=== PATIENT | female | born 1960 | race Caucasian/White ===

== ENCOUNTER → 2020-05-05 18:30 | Outpatient (ROUT) | payer MEDICARE, SELFPAY ==
[2020-05-05 18:32] LABS: Bacteria Urine None Seen
[2020-05-05 18:43] LABS: Appearance Urine UA CLEAR; Bilirubin Urine UA NEGATIVE (NEGATIVE); Color Urine UA YELLOW; Glucose Urine UA NEGATIVE (Negative); Ketones Urine UA NEGATIVE (NEGATIVE); Leukocyte Esterase Urine UA NEGATIVE (NEGATIVE); Nitrite Urine UA NEGATIVE (Negative); Occult Blood Urine UA NEGATIVE (Negative); Protein Urine UA NEGATIVE (Negative); Urobilinogen Urine UA 0.2 E.U./dL (0.2)
[2020-05-05 18:52] LABS: Culture Indicated Urine Cult Not Indicated; RBC Urine 0-1/HPF (0-5/HPF); WBC Urine 0-1/HPF (0-5/HPF)
[2020-05-05 18:53] LABS: Alanine Aminotransferase 8 IU/L (<35); Albumin 4.3 g/dL (3.5-5.0); Albumin Globulin Ratio 1.3 (1.0-2.8); Alkaline Phosphatase 79 U/L (38-126); Aspartate Aminotransferase 19 IU/L (14-36); BUN Creatinine Ratio 27.3 (6-22); Bilirubin Total 0.3 mg/dL (0.2-1.3); Blood Urea Nitrogen 18 mg/dL (7-17); Carbon Dioxide 25 mmol/L (22-32); Chloride 107 mmol/L (98-107); Cholesterol 211 mg/dL (140-199); Estimated Glomerular Filt Rate > 60.0 mL/min (>60); Globulin 3.3 g/dL (1.7-4.1); Glucose 104 mg/dL (80-110); HDL Cholesterol 53 mg/dL (40-60); HEMOLYSIS < 15 (0-50); LDL Cholesterol Calculated 89 mg/dL (<100); Potassium 4.3 mmol/L (3.4-5.1); Sodium 142 mmol/L (137-145); Total Protein 7.6 g/dL (6.3-8.2); Triglycerides 345 mg/dL (35-150)
[2020-05-05 19:19] LABS: Hematocrit 37.7 % (36-46); Mean Corpuscular HGB Conc 31.9 % (30-36); Mean Corpuscular Hemoglobin 26.7 PG (26-34); Mean Corpuscular Volume 83.6 fL (80-100); Platelet Count 373 X10^3/uL (150-400); Red Blood Cell Count 4.51 X10^6/uL (4.0-5.2); Red Cell Distribution Width 15.2 % (11.6-14.8); White Blood Cell Count 8.5 X10^3/uL (4.5-11.0)
[2020-05-05 19:22] LABS: Neutrophils Absolute Manual 5100 /uL (3000-5900); TSH w/ Reflex to FT4 4.16 uIU/mL (0.47-4.68); Total Cells Counted 100
[2020-05-05 19:23] LABS: Anisocytosis 1+
== END ==
PROVIDERS: Visit Provider Internal Medicine
DX: E03.9 Hypothyroidism, unspecified (principal); I10 Essential (primary) hypertension; E78.5 Hyperlipidemia, unspecified; Z80.0 Family history of malignant neoplasm of digestive organs; E78.1 Pure hyperglyceridemia
CPT/HCPCS: 80053; 80061; 81001; 84443; 85025

== ENCOUNTER → 2020-06-27 13:57 | Outpatient (CLI) | payer MEDICARE, SELFPAY ==
[2020-06-27 15:27] LABS: COVID19 -Nasal RAPID Negative (Negative)
== END ==
PROVIDERS: Visit Provider Physician Assistant
DX: Z11.59 Encounter for screening for other viral diseases (principal)
CPT/HCPCS: 87635

== ENCOUNTER 2020-06-29 12:16 | Day surgery (SDC) | payer MEDICARE, SELFPAY ==
--- NOTE | 2020-06-29 | PATH_ITS ---
[facility] Accession Number: [id number] . 01 Material submitted: . gastrointestinal site - GASTRIC POLYP . 02 Diagnosis: Gastric Polyp, Biopsy: Fundic gland polyp. No evidence of Helicobacter organisms on H/E stain. Negative for intestinal metaplasia. Negative for dysplasia and malignancy. MRV 07/01/2020 1056 Local . 02 Electronically signed: . Kj Britt MD, PhD, Pathologist NPI- [id number] . 01 Gross description: . GASTRIC POLYP: Received in formalin are 2 fragment(s) of anne, soft tissue measuring 0.3 x 0.3 x 0.2 cm to 0.3 x 0.2 x 0.1 cm submitted entirely in 1 cassette(s) /QBJ 06/30/2020 0648 Local . 02 Pathologist provided ICD-10: K31.7 . 02 CPT . 853064 Performed at: 01 [facility] [address] [facility], [place], [place] [id number] MD Grant Sr MD Phone: [phone] Performed at: 02 [facility] [address] [place], [place] [id number] MD Tika Sommers MD Phone: [phone]
[2020-06-29 12:47] VITALS: BP 150/90; PULSE 82; RESP 16; TEMP 36.9; O2SAT 98; BMI 40.7
[2020-06-29] MEDS: SODIUM CHLORIDE 0.9% 1,000 ML 200 ML IV (12:55)
--- NOTE | 2020-06-29 13:22 | P.HP_ITS ---
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 Patient History Family & Social History Social History: household members none Tobacco & Substance use: Smoking Status Never smoker alcohol intake frequency holiday/special occasion Substance Use Type does not use Meds Home Medications and Allergies Home Medications Medication Instructions Recorded Confirmed Type amlodipine-benazepril 15 cap PO BID 06/29/20 06/29/20 History bupropion HCl 200 mg PO BID 06/29/20 06/29/20 History clonazepam 1 mg PO BID 06/29/20 06/29/20 History fenofibrate 48 mg PO DAILY 06/29/20 06/29/20 History gabapentin 100 mg PO TID 06/29/20 06/29/20 History levothyroxine 88 mcg PO DAILY 06/29/20 06/29/20 History metoprolol succinate 25 mg PO DAILY 06/29/20 06/29/20 History olanzapine 2.5 mg PO BID 06/29/20 06/29/20 History pantoprazole 40 mg PO DAILY 06/29/20 06/29/20 History rosuvastatin 40 mg PO DAILY 06/29/20 06/29/20 History Allergies Allergy/AdvReac Type Severity Reaction Status Date / Time No Known Drug Allergies Allergy Verified 06/29/20 12:42 Exam Vital Signs (past 8 hours): - 06/29/20 12:47 Temperature 98.5 F Pulse Rate 82 Respiratory Rate 16 Blood Pressure 150/90 H Pulse Oximetry 98 Oxygen Delivery Method Room Air Narrative Exam Narrative: Oropharynx free of lesions Chest clear to auscultation percussion Cardiac exam reveals no S3 or murmur Assessment & Plan Assessment & Plan narrative: 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 Need for colorectal cancer screening and screening of the papilla with upper endoscopy. Risks, benefits, alternatives have been explained.
--- NOTE | 2020-06-29 13:24 | PM.OP.ENDO ---
Operative Date/Time/Diagnoses Date of procedure: 06/29/20 Pre-op diagnosis: See indications and findings Procedure & Clinicians Study performed: EGD and colonoscopy Same procedure as scheduled: Yes Indications: Possible Kwong syndrome need for colorectal cancer screening and screening of the papilla Surgeon: Maria Antonia Rebolledo Procedure Notes Procedure in detail: After informed consent was obtained the patient was placed in left lateral decubitus position. The video upper scope was placed into the oropharynx and with the patient's help swelled in the esophagus. The esophagus stomach and duodenum were carefully examined. On withdrawal retroflexed view the GE junction was performed. The scope was removed. Patient tolerated procedure well. At this point the patient was a bit more awake and sedation with increased though was only mildly effective. Tends to perform colonoscopy reached approximately mid transverse colon before was too uncomfortable for the patient who was fairly wide awake. Anesthesia was therefore called and we completed the procedure under there guidance. Blood loss none Complications none Sedation Total sedation time Versed Findings EGD 1. Normal esophagus 2. Intense streaky gastric erythema not only in the antrum but the body. Biopsies taken to rule out Helicobacter. 3. Multiple fundic gland polyps biopsies taken and placed in the same bottle as 2. Above 4. Normal duodenal bulb and sweep with normal appearing area of the papilla. Colonoscopy 1. Extensive pancolonic diverticulosis. 2. Otherwise negative colonoscopy to cecum. The issue for even a will be whether or not her upcoming genetic testing is positive for Kwong syndrome or not. If it is she will need follow-up colonoscopy every 2 years if not colonoscopy in every 5 years which of the case, she will definitely need anesthesia assistance for any future procedures as sedation is quite ineffective.
[2020-06-29] MEDS: MIDAZOLAM 5 MG/5 ML VIAL IV (13:51)
[2020-06-29] MEDS: fentaNYL 250 MCG/5 ML INJ IV (13:51)
[2020-06-29 14:33] VITALS: BP 157/114; PULSE 82; RESP 20; TEMP 36.8; O2SAT 95
[2020-06-29 14:38] VITALS: BP 130/74; PULSE 82; RESP 24; O2SAT 94
[2020-06-29 14:42] VITALS: BP 123/76; PULSE 76; RESP 16; O2SAT 94
[2020-06-29 14:47] VITALS: BP 141/78; PULSE 75; RESP 15; O2SAT 94
--- NOTE | 2020-06-29 15:01 | SUR.PHASEII ---
Patient c/o abdominal cramping but denies any nausea. Abdomen distended but soft. Bowel sounds hypoactive. Apple juice provided. All discharge instructions reviewed with patient. V/U. Copy of procedure report home with patient.
[2020-06-29 15:30] VITALS: BP 126/72; PULSE 64; RESP 16; TEMP 36.3; O2SAT 98
--- NOTE | 2020-06-29 15:32 | SUR.PHASEII ---
Dr Rebolledo to bedside to evaluate patient due to continued abdominal cramping. Dr Rebolledo assuring patient that pain is related to gas from procedure. Instructed patient to lie on left side to help with movement of gas. VSS. Tolerating PO without difficulty.
--- NOTE | 2020-06-29 15:40 | SUR.PHASEII ---
Patient rocking back and forth side to side and states that her pain feels better. This nurse called daughter, Erin, to let her know that nothing was of concern and that patient would be discharged within about 15 minutes. V/U.
== END 2020-06-29 16:27 | disposition home or self-care (01) ==
PROVIDERS: PCP Internal Medicine; Referring Provider Internal Medicine; Visit Provider Internal Medicine Gastroenterology
PROC: 0DJD8ZZ Inspection of Lower Intestinal Tract, Via Natural or Artificial Opening Endoscopic (ICD-10-PCS; CPT 45378; principal; 2020-06-29 14:00)
PROC: 0DJ08ZZ Inspection of Upper Intestinal Tract, Via Natural or Artificial Opening Endoscopic (ICD-10-PCS; CPT 43235; 2020-06-29 14:00)
DX: Z12.11 Encounter for screening for malignant neoplasm of colon (principal); Z12.89 Encounter for screening for malignant neoplasm of other sites; Z80.49 Family history of malignant neoplasm of other genital organs; Z80.0 Family history of malignant neoplasm of digestive organs; E66.9 Obesity, unspecified; I10 Essential (primary) hypertension; K57.30 Diverticulosis of large intestine without perforation or abscess without bleeding; K31.7 Polyp of stomach and duodenum
CPT/HCPCS: 43239; 45378; J2250; J3010

== ENCOUNTER → 2022-08-17 11:35 | Outpatient (CLI) | payer MEDICARE, SELFPAY ==
[2022-08-17 13:19] LABS: COVID19 -Nasal RAPID Negative (Negative)
== END ==
PROVIDERS: PCP Internal Medicine; Visit Provider Surgery
DX: Z20.822 Contact with and (suspected) exposure to COVID-19 (principal); Z01.812 Encounter for preprocedural laboratory examination
CPT/HCPCS: 87635; C9803

== ENCOUNTER 2022-08-20 14:02 | Day surgery (SDC) | payer MEDICARE, SELFPAY ==
[2022-08-20] VITALS (9 sets, daily range): BP systolic 89–124; BP diastolic 45–76; PULSE 82–98; RESP 11–25; TEMP 36.6–36.7; O2SAT 92–99; BMI 35.4
--- NOTE | 2022-08-20 | PATH_ITS ---
[facility] Accession Number: [id number] . 01 Material submitted: . colon - CECUM/ASCENDING COLON POLYP . 01 Diagnosis: Cecum/Ascending Colon, Polyp, Biopsy: Tubular adenoma, two fragments. [facility] 08/22/2022 0958 Local . 01 Electronically signed: . Tika Sommers MD, Pathologist NPI- [id number] . 01 Gross description: . CECUM/ASCENDING COLON POLYP: Received in formalin are 2 fragment(s) of anne, soft tissue measuring 0.3 x 0.2 x 0.2 cm to 0.3 x 0.1 x 0.1 cm submitted entirely in 1 cassette(s) /CPE 08/21/2022 0937 Local . 01 Pathologist provided ICD-10: D12.6 . 01 CPT . 668648 Specimen Comment: A courtesy copy of this report has been sent to [phone], [phone] Specimen Comment: [id number] Performed at: 01 [facility] [address] [place] [address], [place], [place] [id number] MD Grant Sr MD Phone: [phone]
--- NOTE | 2022-08-20 15:19 | PM.HP.1 ---
History of Present Illness History of Present Illness Date Patient Seen: 08/20/22 Time Patient Seen: 15:19 Chief complaint: SDC Narrative: Family history of Kwong syndrome Patient History Family & Social History Social History: household members none Tobacco & Substance use: Smoking Status Never smoker alcohol intake frequency holiday/special occasion Substance Use Type does not use Meds Home Medications and Allergies Home Medications Medication Instructions Recorded Confirmed Type amlodipine 5 mg-benazepril 10 mg 15 cap PO BID 06/29/20 06/29/20 History capsule bupropion HCl 200 mg tablet,12 hr 200 mg PO BID 06/29/20 06/29/20 History sustained-release clonazepam 1 mg tablet 1 mg PO BID 06/29/20 06/29/20 History fenofibrate 40 mg tablet 48 mg PO DAILY 06/29/20 06/29/20 History gabapentin 100 mg tablet 100 mg PO TID 06/29/20 06/29/20 History levothyroxine 88 mcg tablet 88 mcg PO DAILY 06/29/20 06/29/20 History metoprolol succinate 25 mg PO DAILY 06/29/20 06/29/20 History olanzapine 2.5 mg tablet 2.5 mg PO BID 06/29/20 06/29/20 History pantoprazole 40 mg tablet,delayed 40 mg PO DAILY 06/29/20 06/29/20 History release rosuvastatin 40 mg tablet 40 mg PO DAILY 06/29/20 06/29/20 History Allergies Allergy/AdvReac Type Severity Reaction Status Date / Time No Known Drug Allergies Allergy Verified 08/20/22 15:18 Review of Systems Review of Systems ROS: Yes All systems reviewed with the patient and are negative except as otherwise documented Exam Const General: cooperative HENMT Head: normal to inspection Eyes General: appearance normal, both eyes and all related structures Neck Neck: normal visual inspection Chest Chest: normal inspection of the chest Resp Effort & Inspection: normal respiratory effort Cardio Rate: regular rate GI Inspection: large pannus Skin General: no rashes or lesions noted Neuro General: patient alert and patient awake Extrem General: normal to inspection and no pedal edema Psych Appearance: grossly normal Assessment & Plan Assessment & Plan narrative: 62-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 Colonoscopy for colon cancer screening is pursued today. Time Spent With Patient Critical Care time: I spent a total of [] minutes of critical care time on this patient's care today; this time is exclusive of procedural time.
--- NOTE | 2022-08-20 15:20 | PM.PREOP ---
Pre-operative Note COVID-19 COVID-19 status: Negative Result date/Date tested (Pos, Neg/Pending): 08/17/22 Criteria for continued procedure: Possibility delay results in more complex future surgery or treatment Interval Note History & Physical reviewed/Exam performed by Physician: Yes Changes to H&P: No ASA Class (for procedural sedation): II
[2022-08-20] MEDS: LACTATED RINGERS 1,000 ML 42 ML IV (15:36)
--- NOTE | 2022-08-20 16:57 | PM.OP.COLON ---
Operative Date/Time/Diagnoses Date of procedure: 08/20/22 Time of procedure: 16:57 Pre-op diagnosis: Kwong syndrome Post-op diagnosis: same Procedure & Clinicians Study performed: Colonoscopy with cold forceps polypectomy Same procedure as scheduled: Yes Indications: Kwong syndrome Surgeon: Vincent Thomas Procedure Notes SCOAP/Timeout: Done Procedure in detail: After the risks and benefits were explained, written and verbal informed consent was obtained. The patient was brought into the procedure room and placed into the left lateral decubitus position. Please see anesthesia notes for sedation details. Digital rectal examination was accomplished. The scope was introduced into the patient and advanced under direct visualization to the cecum as identified by the appendiceal orifice and ileocecal valve. The scope was slowly withdrawn to carefully examine the mucosa for any defects or lesions. Comprehensive imaging was accomplished throughout the rectum including the dentate line. The colon was decompressed, the scope was then removed from the patient who tolerated the procedure well. Pediatric colonoscope Bowel prep adequate Scope withdrawal time: 15 minutes Sedation minutes: 27 Complications: none Impression: Patient had fairly extensive diverticulosis through the sigmoid and really the entire left colon. Navigation was challenging. Colon was quite tortuous. Patient had grade 3 nonbleeding nonthrombosed hemorrhoids. There was a diminutive 4-5 mm polyp in the cecum. Initial attempt to remove this with cold snare failed as I could not get a sufficient scope tip angle for this polyp. We swapped out for cold forceps and were successful with its removal. The terminal ileum was interrogated and appeared normal. Endoscopic diagnosis 1. Cecal polyp 2. Tortuous colon 3. Diverticulosis 4. Grade 3 hemorrhoids Post-procedure Plan for aftercare: 1. Await histopathology 2. Repeat colonoscopy 1-2 years. Disposition: PACU
== END 2022-08-20 17:43 | disposition home or self-care (01) ==
PROVIDERS: PCP Internal Medicine; Referring Provider Internal Medicine; Visit Provider Internal Medicine Gastroenterology
PROC: 0DJD8ZZ Inspection of Lower Intestinal Tract, Via Natural or Artificial Opening Endoscopic (ICD-10-PCS; CPT 45378; principal; 2022-08-20 15:00)
DX: Z12.11 Encounter for screening for malignant neoplasm of colon (principal); Z15.09 Genetic susceptibility to other malignant neoplasm; K57.30 Diverticulosis of large intestine without perforation or abscess without bleeding; K64.2 Third degree hemorrhoids; D12.0 Benign neoplasm of cecum
CPT/HCPCS: 45380; J2704